=== PATIENT | male | born 1960 | race Caucasian/White ===

== ENCOUNTER 2016-09-08 18:58 | Emergency (ER) | payer OTHER ==
[~2016-09-08] VITALS: Ht 177.8 cm; Wt 79.0 kg
[2016-09-08 19:07] VITALS: BP 125/78; PULSE 66; RESP 20; TEMP 98.2; O2SAT 97
[2016-09-08] MEDS ORDERED: OMEGCAP PO (19:39)
[2016-09-08] MEDS ORDERED: MULTTAB67 PO (19:39)
[2016-09-08] MEDS ORDERED: DIPH25CA PO (19:42)
--- NOTE | 2016-09-08 20:00 | PD ---
HPI Chief Complaint: Skin Problem Time Seen by Provider: 19:35 Travel History International Travel<30 days: No Contact w/Intl Traveler<30days: No Traveled to known affect area: No History of Present Illness HPI 56-year-old male presents emergency department for evaluation of a rash. Patient reports he noticed a rash on his upper extremities approximately 3 days ago after trimming bushes outside. He reports the last 2 days the rash is spread to his trunk and his legs prompting his visit today. He reports the rash is pruritic. He denies fever or chills. He denies recent infection. He denies headache. He denies any new medications. Patient is not sexually active. Patient reports no past medical history. Not currently taking any medications. PFSH Past Medical History Medical History: Denies Significant Hx Past Surgical History Surgical History: No Previous Surgery Social History Alcohol Use: No Tobacco Use: No Substance Use: No Allergies-Medications (Allergen,Severity, Reaction): Coded Allergies: No Known Allergies (Unverified , 09/08/16) Reported Meds & Prescriptions Reported Meds & Active Scripts Active Reported Diphenhydramine (Diphenhydramine HCl) 25 Mg Cap 25 Mg PO Q6H PRN Multiple Vitamin 1 Tab 1 Tab PO DAILY [place]-3 Fish Oil/Vitamin (Fish Oil-Cholecalciferol) 1,000-1,000 Mg Cap 1 Cap PO DAILY Review of Systems Except as stated in HPI: all other systems reviewed are Neg Physical Exam Narrative GENERAL: Alert, well-appearing male, in no acute distress. SKIN: Focused skin assessment warm/dry. Macular papular rash to upper extremities and trunk and upper portion of thighs. No rash on the palms. HEAD: Atraumatic. Normocephalic. EYES: Pupils equal and round. No scleral icterus. No injection or drainage. ENT: No nasal bleeding or discharge. Mucous membranes pink and moist. No pharyngitis. No oropharyngeal edema. NECK: Trachea midline. No JVD. No meningismus CARDIOVASCULAR: Regular rate and rhythm. No murmur appreciated. RESPIRATORY: No accessory muscle use. Clear to auscultation. Breath sounds equal bilaterally. GASTROINTESTINAL: Abdomen soft, non-tender, nondistended. Hepatic and splenic margins not palpable. MUSCULOSKELETAL: No obvious deformities. No clubbing. No cyanosis. No edema. NEUROLOGICAL: Awake and alert. No obvious cranial nerve deficits. Motor grossly within normal limits. Normal speech. PSYCHIATRIC: Appropriate mood and affect; insight and judgment normal. Data Data Last Documented VS Vital Signs Date Time Temp Pulse Resp B/P Pulse Ox O2 Delivery O2 Flow Rate FiO2 09/08/16 19:33 66 20 09/08/16 19:07 98.2 125/78 97 MDM Medical Decision Making Medical Screen Exam Complete: Yes Emergency Medical Condition: Yes Differential Diagnosis Unspecified rash, contact dermatitis, viral rash Narrative Course 56-year-old male with no significant past medical history presents emergency department for evaluation of a rash. Patient reports the rash began approximately 3-4 days ago after trimming bushes outside. He denies any new medications. He denies any previous reaction. No recent infection. No fevers or chills. He reports that the rash is pruritic and unrelieved with over-the- counter Benadryl. On exam he has a widespread maculopapular rash primarily in the upper extremities and trunk. No rash involved on the face. Patient will be treated with Benadryl and steroids and instructed to follow up with primary doctor or Derm. Return if he has no worsening symptoms. Diagnosis Primary Impression: Rash and nonspecific skin eruption Referrals: [facility] Care Physician Patient Instructions: Acute Rash (ED), General Instructions Additional Instructions: Follow-up to for recheck. Return to the emergency department if he developed fever or chills or any new worsening symptoms. Scripts Prednisone 20 Mg Tab40 Mg PO DAILY #10 TAB Take 40 mg (2 tablets) daily for 5 days Prov:Jackie Yarbrough 09/08/16 Disposition: 01 DISCHARGE HOME Condition: Stable Jackie Yarbrough Sep 08, 2016 20:00
[2016-09-08] MEDS ORDERED: PRED20 PO (20:02)
== END 2016-09-08 20:12 | disposition home or self-care (01) ==
LOC: PHED 18:58
DX: R21 Rash and other nonspecific skin eruption (principal)
CPT/HCPCS: 99283